=== PATIENT | male | born 1955 | race Two or more races ===

== ENCOUNTER → 2025-10-29 | Outpatient (CLI) | payer MEDICARE, SELFPAY ==
--- NOTE | 2025-10-29 10:00 | XR_ITS ---
Esophagram on 10/29/2025 at 11:27 a.m. INDICATION: Heartburn reflux difficulty swallowing for 3 months FINDINGS: At fluoroscopy with the patient in the upright position, he swallowed the contrast media without problems, and the cervical and thoracic portions of the esophagus appeared entirely normal. The gastroesophageal junction there was a very small sliding-type gastric hernia noted. There was diminished tension of the lower esophageal sphincter, and when the patient was examined in the RPO oblique recumbent position during water swallowing, there was a small but definite amount of gastroesophageal reflux. The contrast media only extended about 15 cm upwards into the lower esophagus. IMPRESSION: 1. The patient's esophagus is anatomically normal, and primary esophageal peristalsis is normal. 2. When the patient is checked in the recumbent position during water swallowing, there is definite somewhat mild reflux with the contrast media refluxing upward into the lower 15 cm of the esophagus. There is also a very small sliding-type gastric hiatal hernia
== END | disposition home or self-care (01) ==
LOC: SDIM 09:38
PROVIDERS: PCP Internal Medicine; Referring Provider Internal Medicine Hospice and Palliative Medicine; Visit Provider Internal Medicine Hospice and Palliative Medicine
DX: K44.9 Diaphragmatic hernia without obstruction or gangrene (principal)
CPT/HCPCS: 74220; A4649